=== PATIENT | female | born 1970 | race Caucasian/White ===

== ENCOUNTER 2025-05-18 08:57 | Outpatient (REF) | payer OTHER, SELFPAY ==
--- OUTSIDE RECORDS SUMMARY | 2025-05-18 09:58 | XMS_ITS | Clinical Summary ---
Author Organization [facility] Address [address] [place] [address] Care Team Providers Care Hatchery Manager Name Role Phone Torrey Goldman DO Primary Care Provider [phone] Surgical History Surgery Date Site/Laterality Comments SECTION PROCEDURE: HISTORICAL OTHER SURGICAL HISTORY PROCEDURE: HISTORICAL CERCLAGE SURGERY CHOLECYSTECTOMY PROCEDURE: SC CHOLECYSTECTOMY OTHER SURGICAL HISTORY PROCEDURE: SC HYSTEROSCOPY ENDOMETRIAL ABLATION; COMMENT: bladder sling TUBAL LIGATION PROCEDURE: HISTORICAL TUBAL LIGATION ABDOMINAL SURGERY 10/25/2016 PROCEDURE: HISTORICAL ABDOMINAL SURGERY; COMMENT: Laparoscopic sleeve gastretomy Medical History Medical History Date Comments HTN (hypertension) DX:HTN (hyper tension) Family history of early CAD 09/27/2015 DX:F amily history of early CAD; COMMENT: Father first [place] age 30, hx rheumatic fever Erythrocytosis 05/24/2021 DX:Erythrocytosi s; COMMENT: Per heme/onc 05/02/2021, not clinically significant no further work-up needed Hemochromatosis 05/24/2021 DX:Hemochromatos is; COMMENT: Being investigated by hemeonc 04/2021 Family History Medical History Relation Name Comments Coronary artery disease Father Other: HIV Sister Relation Name Status Comments Brother Alive HTN Father (Age 73) first [place] a ge 30, rheumatic fever, Heart failure, DM, kidney, thyroid disease Mother Alive [place] Sister AIDS Son 1 Alive Healthy Son 2 Alive Healthy Son 3 Alive healthy Son 4 Alive healthy adopted Son 5 Alive healthy adopted Social History Tobacco Use Types Packs/Day Years Used Date Smoking Tobacco: Never Smokeless Tobacco: Never Alcohol Use Standard Drinks/Week Comments Yes 0 (1 standard drink = 0.6 oz pur e alcohol) Comments Unknown Sex and Gender Information Value Date Recorded Sex Assigned at Not on file Legal Sex Female 9:20 PM EST Gender Identity Not on file Sexual Orientation Not on file Obstetrics History Plan of Treatment Health Maintenance Due Date Last Done Comments Breast Cancer Screening 1971 Colorectal Cancer Screening: Colonoscopy 1971 Cervical Cancer Screening: P ap Smear 01/31/1992 Pneumococcal Vaccine: 50+ Years (1 of 1 - PCV) 2021 Zoster Vaccines (1 of 2) 2021 Hepatitis B Vaccines (3 of 3 - 19+ 3-dose series) 07/15/2021 02/15/2021, 01/13/2021 Cholesterol Screening (Lipid Panel) 07/22/2022 HIV Screening 07/22/2022 Hepatitis C Screening 07/22/2022 Social Influencers of Health Screening 07/22/2022 Hypertension/CHF/CAD Annual BMP Blood Test 07/23/2022 Depression Screening 08/13/2024 COVID-19 Vaccine (3 - 2024-2 6 season) 2025 12/15/2020, 11/17/2020 Influenza Vaccine (#1) 2025 , 06/06/2018, 05/10/2015 DTaP,Tdap,and Td Vaccines (2 - Td or Tdap) 09/27/2025 09/27/2015 RSV Immunization Adult Patients (1 - 1-dose 75+ series) 2046 MMR Vaccines Aged Out 02/15/2021, 01/13/2021 No longer eligible based on patient's age to complete this topic HIB Vaccines Aged Out No longer eligi ble based on patient's age to complete this topic HPV Vaccines Aged Out No longer eligi ble based on patient's age to complete this topic Hepatitis A Vaccines Aged Out No long er eligible based on patient's age to complete this topic IPV Vaccines Aged Out No longer eligi ble based on patient's age to complete this topic Meningococcal ACWY Vaccine Aged Out N o longer eligible based on patient's age to complete this topic Meningococcal B Vaccine Aged Out No l onger eligible based on patient's age to complete this topic RSV Immunization Patients Under 20 months Aged Out No longer eligible b ased on patient's age to complete this topic Varicella Vaccines Aged Out No longer eligible based on patient's age to complete this topic Care Teams Hatchery Manager Relationship Specialty Start Date End Date Torrey Goldman DO PCP - General Internal Medicine 03/02/22
--- OUTSIDE RECORDS SUMMARY | 2025-05-18 09:58 | XMS_ITS | Clinical Summary ---
Author Organization [employer] Address [address] [facility] [address] [place] [address] Care Team Providers Care Special Machine Operator Name Role Phone Bethanie Matt BUGGY RUNNER Primary Care Provider [phone] Allergies Active Allergy Reactions Criticality Noted Date Comments Amoxicillin-Pot Clavulanate 09/20/2017 Rash Cefotetan 09/20/2022 Other reaction(s): hives Metformin Diarrhea Medium 11/20/2024 Oxycodone-Acetaminophen 09/20/2022 Other reaction(s): hallucinations Penicillins 09/20/2022 Other reaction(s): Rash Medications ibuprofen 600 MG tablet Take 600 mg by mouth. 08/18/19 23 Active loratadine (Claritin) 10 MG tablet Take 1 tablet by mouth in the morning. 09/04/19 23 Active omeprazole (PriLOSEC) [address] capsule Take 1 capsule by mouth in the morning. 09/06/19 23 Active gabapentin (Neurontin) 100 MG capsule Take 200 mg by mouth 3 times daily. 04/10/20 23 Active PARoxetine (Paxil) 10 MG tablet Take 10 mg by mouth Once per day. Active Blood Glucose Monitoring Suppl (FreeStyle Lite) w/Device kitIndications:T ype 2 diabetes mellitus with hyperglycemia, without long-term current use of insulin (HCC) 1 Units Once per day. 1 kit 03/06/20 24 Active Alcohol Swabs padsIndications: Type 2 diabetes mellitus with hyperglycemia, without long-term current use of insulin (HCC) 1 Units Once per day. For blood glucose checks 100 each 03/06/20 Active glucose blood (FREESTYLE LITE) test stripIndications :Type 2 diabetes mellitus with hyperglycemia, without long-term current use of insulin ([facility]) TEST ONCE DAILY BEFORE BREAKFAST. 100 strip 3 03/06/20 Active lisinopril 20 MG tabletIndication s:Essential hypertension TAKE 1 TABLET BY MOUTH EVERY DAY IN THE MORNING 90 tablet 3 04/03/20 Active fluticasone (Flonase) 50 MCG/ACT nasal sprayIndications :Allergic rhinitis, unspecified seasonality, unspecified trigger Administer 1 spray into each nostril Once per day. Shake gently. Before first use, prime pump. After use, clean tip and replace cap. 16 g 11 06/09/20 Active dicyclomine (Bentyl) 10 MG capsule Take 10 mg by mouth 4 times daily. 11/07/19 Active semaglutide (Ozempic, 1 MG/DOSE,) 4 MG/3ML solution pen-injectorIndi cations:Uncontro lled type 2 diabetes mellitus with hypoglycemia without coma (HCC) INJECT 1MG SUBCUTANEOUSLY ONCE A WEEK 9 mL 3 03/23/20 Active Active Problems Problem Noted Date Diagnosed Date Uncontrolled type 2 diabetes mellitus with hypoglycemia without coma 11/20/2024 Pain of right heel 11/20/2024 Burgos's esophagus determined by biopsy 025 Medication changed to therapeutic equivalent 05/2025 Osteoarthritis of both hands 06/09/2024 Overview (06/09/2024): Patient with osteoarthritis to both hands, seen on XR. RF <10 02/28/24. Pain and stiffness worse in left ring finger. We will refer to rheum. Hand pain, left 02/28/2024 Overview (03/06/2024): Finger, toes, and hip pain, worsening x 6 months with finger deformity to L 4th finger. Can continue to take Ibuprofen for pain. X rays showed osteoarthritis. RA screen negative Assessment & Plan (03/06/2024 8:59 AM EDT): X rays showed osteoarthritis. RA screen negative Discussed referral to arthritis treatment center; pt deferred at this time as she would like to focus on new dx of diabetes. Can continue to take Ibuprofen for pain. Edema of right lower extremity 04/26/2023 Overview (04/26/2023): LE edema in R ankle, intermittent x 3-4 weeks. Notices shoe didn't fit. Generalized RLE edema noted. Will get venous duplex. Reviewed S/S DVT/blood clots - when to go to ER. Urinary frequency 04/26/2023 Overview (04/26/2023): Urinary frequency. Will check UA. Routine general medical exam ination at a health care facility 04/26/2023 Overview (04/26/2023): CPE done 04/25/23 HEALTH CARE MAINTENANCE: Colonoscopy (age 45-75): Age 51, 10 year follow up - 2030 Mammogram (age 40-74): HX of breast cancer. Mammo scheduled for next month. Has oncology appointment next month - [facility]. AAA Screen (Fam Hx AAA): No known family history. LDCT (smoke >30 pack year, age 55-80): Never smoker. DEXA (age 61 with RF, age 66): Had bone density 1 year ago before hysterectomy - was normal. IMMUNIZATIONS: Tetanus (every 10 years): 09/2015 Pneumococcal (age 65): Age 53 Shingrix (age 50): Had Shingles 15 years ago - hasn't had vaccine yet. COVID: Moderna x 2. No boosters. FLU: Will have every year - hasn't had yet. Assessment & Plan (04/26/2023 9:13 PM EDT): Reviewed all health care maintenance and immunizations. Discussed Shingles and vaccination. Advised to get vaccine - pt will consider. Lesion of eyelid 04/26/2023 Overview (04/26/2023): L upper eyelid, outer lash line - pea sized, flesh colored lesion x 6 months. No S/S infection, No erythema. Fluctuates in size, pt reports up to marble size. Will refer to surgery for further evaluation. Ductal carcinoma in situ (DCIS) of right breast 10/18/2022 Incomplete uterovaginal prolapse 10/18/2022 Severe obesity (BMI 35.0-39.9) with comorbidity (CMS/HCC) 10/18/2022 Uterine fibroid 10/18/2022 Moderate mixed hyperlipidemia not requiring stat in therapy 10/18/2022 Overview (10/19/2022): 09/20/22 ASCVD Risk 2.4% Assessment & Plan (10/19/2022 8:38 PM EST): Lab results reviewed. No statin indicated at this time. Discussed healthy lifestyle changes. Type 2 diabetes mellitus wit h hyperglycemia, without long-term current use of insulin 10/18/2022 02/28/2024 Overview (06/09/2024): A1C 9.2% on routine blood tests 02/28/24. Today 06/09/24 down to 6.8%. However patient is having severe daily diarrhea on metformin 500 mg daily. We will discontinue metformin and start weekly Trulicity injections. Reviewed medication, administration, and possible side effects. Advised patient to continue checking FBS while we adjust medications, with eventual goal of discontinuing CGM and managing with in-clinic A1c readings. Patient in agreement with plan. She will follow up if diarrhea worsens or fails to improve. Assessment & Plan (03/06/2024 8:57 AM EDT): A1C 9.2% on routine blood tests 02/28/24 Started meformin XR 500 mg daily (low d/t concern for GI side effects - she will let us know if SEs develop) Referred to nutrition for diabetic education Advised to start checking blood sugar daily before breakfast Follow up 3 months or sooner if needed Assessment & Plan (03/06/2024 8:55 AM EDT): >>ASSESSMENT AND PLAN FOR PREDIABETES WRITTEN ON 10/19/2022 8:35 PM BY PAT GUTIERREZ Reviewed lab results, discussed prediabetes. Discussed healthy lifestyle modifications. Will continue to discuss. Hemochromatosis 09/21/2022 Overview (06/09/2024): Engaged with hematology at [facility]. Obesity (BMI 35.0-39.9 without comorbidity) 04/2023 Assessment & Plan (09/21/2022 1:50 PM EST): Will check labs. Symptomatic postsurgical menopause 09/21/2022 Overview (04/26/2023): Total hysterectomy 08/2022 for prolapsed uterus and endometriosis. Since hysterectomy having : night sweats, new hip pain, insomnia, brain fog, feels groggy, gaining weight. Started on Gabapentin. Engaged with Dr. Cabello, ADVERTISING [employer]ITER - has appt next month. Assessment & Plan (10/19/2022 8:29 PM EST): Significant hot flashes, interfering with sleep. Being treated by ADVERTISING COPYWRITER. Gabapentin increased, is going to try acupuncture. Assessment & Plan (09/21/2022 1:51 PM EST): +hot flashes after total hysterectomy. Engaged with ADVERTISING COPYWRITER who recently started Gabapentin, which is helping. Will continue to monitor. H/O gastric sleeve 09/21/2022 Dysmenorrhea 09/20/2022 Dyspareunia, female 09/20/2022 Erythrocytosis 09/20/2022 Assessment & Plan (09/20/2022 9:24 AM EST): Engaged with hematology. Allergic rhinitis 10/23/2021 Overview (06/09/2024): Well controlled with fluticasone. We will continue with current treatment plan. Essential hypertension 10/23/2021 Overview (06/09/2024): BP Readings from Last 4 Encounters: 06/09/24 120/74 03/06/24 114/67 02/28/24 127/83 04/25/23 (!) 139/93 BP at goal on Lisinopril. Will continue current treatment plan at this time. Assessment & Plan (10/19/2022 8:24 PM EST): BP at goal. Some dry cough on Lisinopril, but does not want to change at this time. Will continue to monitor and will call if decides she would like to trial new medication. Assessment & Plan (09/20/2022 9:23 AM EST): Had been stable on Lisinopril for about 10 years, ran out about 2 weeks ago. Denies any medication side effects. Will restart Lisinopril 10mg. Will RTC in about 1 month for CPE/BP check. Gastroesophageal reflux disease 02/01/2020 Overview (04/26/2023): On Prilosec x 6 years. 10/2022 H Pylori negative. Unable to stop PPI due to symptoms. Discussed options - will refer to GI. Assessment & Plan (10/19/2022 8:33 PM EST): Will test for H Pylori. If negative, will trial off Prilosec and start H2 kathryn. If symptoms are not managed on H2 kathryn, will restart PPI and will refer to GI. Assessment & Plan (09/21/2022 1:50 PM EST): On Prilosec x 6 years since gastric sleeve procedure to control acid reflux symptoms. 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 Will continue to discuss and encourage H2 kathryn trial. Encounters Date Type Department Care Team Description 03/23/[address] [address] Sarita Curtis DO Uncontrolled type 2 diabetes mellitus with hypoglycemia without coma (CMS/HCC) 02/24/[address] [address] Bethanie Matt FNP Uncontrolled type 2 diabetes mellitus with hypoglycemia without coma (CMS/HCC) from Last 3 Months Immunizations Immunization Administration Dates Next Due Hep B, adult 07/18/2021,02/15/2021,01/13/2021 Influenza Injectable Quadriv alant Preservative Free IIV4 MDCK 05/24/2022,05/27/2021,06/06/2018 Influenza injectable quadriv alent IIV4 with preservative 07/13/2020 Influenza injectable quadriv alent preservative free 05/23/2023 Influenza, IIV3, injectable 05/27/2021, 0,05/10/2015 MMR 02/15/2021,01/13/2021 Moderna Covid-19 Vaccine 12+ 12/15/2020,11/18/19 21 Tdap 09/27/2015 Family History Medical History Relation Name Comments htn Brother Premature Daughter 22 weeks Heart disease Father Thyroid disease Father htn Father renal disease Father No Known Problems Mother No contact HIV Sister Age 40 No Known Problems Son 1 No Known Problems Son 2 No Known Problems Son 3 Relation Name Status Comments Brother Alive Daughter Father Mother Alive Sister Son 1 Alive Son 2 Alive Son 3 Alive Social History Tobacco Use Types Packs/Day Years Used Date Smoking Tobacco: Never Passive Smoke Exposure: Never Smokeless Tobacco: Never Tobacco Cessation:Counseling Given: Not Answered Alcohol Use Standard Drinks/Week Comments Not Currently 0 (1 standard drink = 0.6 oz pur e alcohol) Maybe 2 drinks per year. Alcohol Answer Date Recorded How often do you have a drink containing alcohol ? 0 11/20/2024 How many drinks containing a lcohol do you have on a typical day when you are drinking? 0 11/20/2024 How often do you have six or more drinks on one occasion? 0 11/20/2024 Housing Stability Answer Date Recorded What is your housing situation today? I have rosana salazar 11/20/[address] you li ve. Do you have problems with any of the following? None of the above 11/20/2024 Food Insecurity Answer Date Recorded Within the past 12 months, y ou worried that your food would run out before you got money to buy more: Never True 11/20/2024 Within the past 12 months,th e food you bought just didn't last and you didn't have enough money to get more: Never True 05/2025 Transportation Answer Date Recorded In the past 12 months, has l ack of transportation kept you from medical appts, meetings, work or from getting things needed for daily living? No 11/20/2024 Intimate Partner Violence Answer Date R ecorded Within the last year, have y ou been afraid of your partner or ex-partner? 2 11/20/2024 Within the last year, have y ou been humiliated or emotionally abused in other ways by your partner or ex-partner? 2 Within the last year, have y ou been kicked, hit, slapped, or otherwise physically hurt by your partner or ex-partner? 2 11/20/2024 Within the last year, have y ou been raped or forced to have any kind of sexual activity by your partner or ex-partner? 2 11/20/2024 Utilities Answer Date Recorded In the past 12 months, has t he [employer], gas, oil or water company threatened to shut off services in your home? No 11/20/2024 Depression Answer Date Recorded Patient Health Questionnaire-2 Score 0 11/20/2024 Internet Access Answer Date Recorded Internet Access Q1 Yes 11/20/2024 Internet Access Q2 Not on file 11/20/2024 Education Answer Date Recorded What is the highest level of school you have completed or the highest degree you have received? 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 Not on file Not on file Last Filed Vital Signs Vital Sign Reading Time Taken Comments Blood Pressure 100/65 11/20/2024 9:45 AM EDT Pulse 86 11/20/2024 9:45 AM EDT Temperature 36.9 C (98.4 F) 06/09/2024 9:43 AM EDT Respiratory Rate 16 06/09/2024 9:43 AM EDT Oxygen Saturation 96% 11/20/2024 9:45 AM EDT Inhaled Oxygen Concentration - - Weight 90.7 kg (200 lb) 11/20/2024 9:45 AM EDT Height 160 cm (5' 3 ) 11/20/2024 9:45 AM EDT Body Mass Index 35.43 11/20/2024 9:45 AM EDT Plan of Treatment Health Maintenance Due Date Last Done Comments CT Colonography 1971 Colonoscopy 1971 Colorectal Cancer Screening 1971 FIT DNA/Cologuard 1971 FIT 1971 FOBT 1971 Mammogram 1971 Sigmoidoscopy 1971 Disability Screening 1971 Eye Exam 1981 Pneumococcal Vaccine: 50+ Years (1 of 2 - PCV) 1990 Zoster Vaccines (1 of 2) 2021 Lipid Panel 09/20/2023 09/20/2022 COVID-19 Vaccine ( - season) 2025 08/01/2023, 12/15/2020, 11/17/2020 Influenza Vaccine (#1) 2025 4, 05/23/2023, 05/24/2022, Additional history exists Diabetes: Hemoglobin A1C 05/22/2025 025, 06/09/2024, 02/28/2024, Additional history exists DTaP/Tdap/Td Vaccines (2 - Td or Tdap) 09/27/2025 09/27/2015 Alcohol/Substance Use Screening 11/20/2025 11/20/2024 Depression Screening 11/20/2025 11/20/2024, 11/21/19 25 Diabetes: Urine Protein Screening 11/20/2025 11/20/2024 SDOH Screening 11/20/2025 11/20/2024 Tobacco Screening 11/20/2025 11/20/2024 Diabetes: Foot Exam 12/26/2025 12/26/2024, 5 RSV Patients and Patients Aged 60 years or older (1 - 1-dose 75+ series) 2046 Hepatitis B Vaccines Completed 07/18/2021, 02/15/2021, 01/13/2021 HIV Screening Completed 02/28/2024 Hepatitis C Screening Completed 02/28/2024 HIB Vaccines Aged Out No longer eligi [...] patient's age to complete this topic Meningococcal Vaccine Aged Out No valeria charisse eligible based on patient's age to complete this topic RSV under 20 months Aged Out No longe r eligible based on patient's age to complete this topic Rotavirus Vaccines Aged Out No longer eligible based on patient's age to complete this topic Procedures Procedure Name Priority Date/Time Associated Diagnosis Comments AMB REFERRAL TO PODIATRY Urgent 12/26/2024 Pain of right heel POCT GLYCOSYLATED HEMOGLOBIN (HGB A1C) Routine 11/20/2024 2:01 PM EDT Uncontrolled type 2 diabetes mellitus with hypoglycemia without coma (CMS/HCC) ALBUMIN/CREATININE RATIO, RANDOM URINE Routine 11/20/2024 12:00 AM EDT Uncontrolled type 2 diabetes mellitus with hypoglycemia without coma (CMS/HCC) HEPATITIS C VIRUS (HCV) AB CASCADE TO QNT PCR & GENOTYP Routine 02/28/2024 1:06 PM EDT Routine screening for STI (sexually transmitted infection) HIV P24 ANTIGEN/ANTIBODY WITH REFLEX TO CONFIRMATION Routine 02/28/2024 1:06 PM EDT Routine screening for STI (sexually transmitted infection) LIPID PANEL, STANDARD Routine 09/20/2022 9:23 AM EST from Last 3 Months or Most Recently Relevant to Health Maintenance Results * Referral to Podiatry (12/26/2024) us Tonja Giles NP OUTPATIENT REFERRAL O RDERABLES Final Result * (ABNORMAL) POCT glycosylated hemoglobin (Hgb A1c) (11/20/2024 2:01 PM EDT) Hemoglobin A1C 6.1(A) 4.0 - 6.0 % Blood Capillary blood specimen / Unknown 11/20/2024 2:01 PM EDT us Tonja Giles NP POINT OF CARE TEST EN TER/EDIT ORDERABLES Final Result * Albumin/Creatinine Ratio, Random Urine (11/20/2024 12:00 AM EDT) Creatinine, Random Urine 148.4 Not Estab. mg/dL [facility] Albumin, Urine 4.6 Not Estab. ug/mL [facility] 1 Albumin/Creatini ne Ratio 3 0 - 29 mg/g creat [facility] 1 Comment: Normal: 0 - 29 Moderately increased: 30 - 300 Severely increased: >300 Urine (Urine, Random) 11/20/2024 11/20/2024 Comment:Urine, Random Releas e Narrative [facility] 1 - 11/21/2024 6:05 PM EDT Performed at: - [address] [id number] Plum Packer: Sahara Adair MD, Phone: [phone] us Tonja Giles NP LAB URINE ORDERABLES Final Result Performing Organization Address City/[facility]/ZIP Co de Phone Number [facility] * Hepatitis C Virus (HCV) Antibody [place] to Quantitative PCR and Genotyping [id number] (02/28/2024 1:06PM EDT) Pathologist [facility] HCV Ab Non Reactive Non Reactive [facility] 1 Blood Venous blood specimen / Unknown 02/28/2024 1:06 PM EDT 02/28/2024 Narrative [facility] 1 - 02/29/2024 12:06 PM EDT Performed at: [facility] [address], [address], [place], [place] [id number] Plum Packer: Giles Oneill MD, Phone: [phone] us Bethanie DUVALLP LAB BLOOD ORDERABLES Final Resul t [facility] 1 * HIV p24 Antigen/Antibody With Reflex to Confirmation (02/28/2024 1:06 PM EDT) Pathologist [facility] HIV Ab/p24 Ag Screen Non Reactive Non Reactive [facility] 1 Comment: HIV Negative HIV-1/HIV-2 antibodies and HIV-1 p24 antigen were NOT detected. There is no laboratory evidence of HIV infection. Blood Venous blood specimen / Unknown 02/28/2024 1:06 PM EDT 02/28/2024 Narrative [facility] 1 - 02/29/2024 6:05 AM EDT Performed at: 01 - [facility] [address] [id number] Plum Packer: Sahara Adair MD, Phone: [phone] Bethanie Matt [facility] LAB BLOOD ORDERABLES Final Resul t Performing Organization Address [facility] Co de Phone Number [facility] * (ABNORMAL) Lipid Panel, Standard (09/20/2022 9:23 AM EST) Pathologist [facility] Cholesterol, Total 229(H) (<200) MG/DL [facility] Triglyceride (mg/dL) in Serum/Plasma 199(H) (<150) MG/DL [facility] HDL Cholesterol 46 (>39) MG/DL [facility] LDL Cholesterol, Calculated 143(H) (0-130) MG/DL [facility] Non HDL Chol. (LDL+VLDL) 183(H) (<160) MG/DL [facility] Comment: Testing performed or reported by [facility], a Service of [facility], [address] [place] [address] La Davis MD, Patient Safety Attendant [facility]# [id number] 09/20/2022 9:23 AM EST 09/20/2022 9:24 AM EST [facility] LAB BLOOD ORDERABLES Final Resul t Performing Organization Address [facility] de Phone Number [address] [address] from Last 3 Months or Most Recently Relevant to Health Maintenance Insurance , [address] [place] [address] Care Teams Special Machine Operator Relationship Specialty Start Date End Date Bethanie Matt FNP [address] [place] [address] PCP - General Family Medicine 09/19/22
--- OUTSIDE RECORDS SUMMARY | 2025-05-18 09:58 | XMS_ITS | Encounter Summary ---
Author Organization [employer] Address [address] [facility] 7t [place] [address] Care Team Providers Care Production Planner Scheduler Name Role Phone Bethanie Matt Primary Care Provider [phone] Reason for Visit * Reason Comments Med Refill Encounter Details Date Type Department Care Team (Late st Contact Info) Description 08/17/2023 Refill Elaine [facility] [address] [place] [address] Bethanie Matt FNP [address] [place] [address] Essential hypertension Social History Tobacco Use Types Packs/Day Years Used Date Smoking Tobacco: Never Smokeless Tobacco: Never Alcohol Use Standard Drinks/Week Comments Not Currently 0 (1 standard drink = 0.6 oz pur e alcohol) Maybe 2 drinks per year. Housing Stability Answer Date Recorded What is your housing situation today? I have rosana salazar 05/28/[address] you li ve. Do you have problems with any of the following? None of the above 05/28/2023 Food Insecurity Answer Date Recorded Within the past 12 months, y ou worried that your food would run out before you got money to buy more: Never True 05/28/2023 Within the past 12 months,th e food you bought just didn't last and you didn't have enough money to get more: Never True Transportation Answer Date Recorded In the past 12 months, has l ack of transportation kept you from medical appts, meetings, work or from getting things needed for daily living? No 05/28/2023 Utilities Answer Date Recorded In the past 12 months, has t he electric, gas, oil or water company threatened to shut off services in your home? No 05/28/2023 Depression Answer Date Recorded Patient Health Questionnaire-2 Score 2 04/25/2023 Education Answer Date Recorded What is the highest level of school you have completed or the highest degree you have received? 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 documented in this encounter Plan of Treatment Not on file documented as of this encounter Visit Diagnoses Diagnosis Essential hypertension Unspecified essential hypertension documented in this encounter Care Teams Production Planner Scheduler Relationship Specialty Start Date End Date Bethanie Matt FNP [address] [place] [address] PCP - General Family Medicine 09/19/22 documented as of this encounter
--- OUTSIDE RECORDS SUMMARY | 2025-05-18 09:58 | XMS_ITS | Patient Health Record ---
Author Organization [facility] Address [address] [place] [address] Care Team Providers Care Finance Administrator Name Role Phone Kika Dickerson Primary Care Provider CHRISTINE Driver Unavailable [phone] Allergies Allergen (clinical drug ingredient) Drug/Non Drug Allergy documented on EMR Reaction Allergy Type Onset Date Status Ceftin hives Drug Allergy Active acetaminophen / oxycodone Percocet hives Drug Allergy Active Penicillin hives Drug Allergy Active Reason For Referral No Information Medications Medication SIG (Take, Route, Frequency, Duration) Notes Start Date End Date Status Loratadine 10 MG 1 tablet Orally Once a day Active Omeprazole 20 MG 1 capsule 1/2 to 1 hour before morning meal Orally Once a day Active PARoxetine HCl 10 MG 1 tablet in the morning Orally Once a day Active Ozempic (0.25 or 0.5 MG/DOSE) 2 MG/3ML as directed Subcutaneous Active Meloxicam 15 MG 1 tablet Orally Once a day; Duration: 30 days 12/26/2024 Active Flonase 50 MCG/ACT Active Gabapentin 100 MG 1 tablet Orally Once a day Not-Taking Lisinopril 20 MG 1 tablet Orally Once a day Active Ibuprofen 600 MG 1 tablet with food o r milk as needed Orally Three times a day Not-Taking Famotidine 20 MG 1 tablet at bedtime as needed Orally Once a day Not-Taking Problems Problem Type SNOMED Code ICD Code Onset Dates Problem Status W/U Status Risk Notes Problem 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) Plantar fasciitis, right (M72.2) Active confirmed Vital Signs Heart Rate 80 /min 02/25/2025 Temperature 96.8 degrees Fahrenheit 02/25/2025 Respiratory Rate 12 /min 02/25/2025 Height 5ft 3in in 02/25/2025 Weight 192.5 lbs 02/25/2025 BMI 34.1 kg/m2 02/25/2025 Encounters Encounter Location Date Provider Diagnosis [facility] [address] [address] 12/26/2024 CHRISTINE OKEEFE Right Achilles tendinitis M76.61 ; Plantar fasciitis, right M72.2 ; Pain in right foot M79.671 and Os trigonum Q74.2 [facility] [address] [address] 01/23/2025 CHRISTINE OKEEFE Right Achilles tendinitis M76.61 ; Plantar fasciitis, right M72.2 ; Pain in right foot M79.671 and Os trigonum Q74.2 [facility] [address] [address] 02/25/2025 CHRISTINE OKEEFE Right Achilles tendinitis M76.61 ; Plantar fasciitis, right M72.2 ; Pain in right foot M79.671 and Os trigonum Q74.2 [facility] [address] [address] 12/09/2024 CHRISTINE OKEEFE Assessments Encounter Date Diagnosis (ICD Code) Assessment Notes Treatment Notes Treatment Clinical Notes Section Notes 12/26/2024 Plantar fasciitis, right (ICD-10 - M72.2) Discussed the pathology of plantar fasciitis, what that means and how it affects the patient's ADL. Reviewed stretching and icing exercises with the patient, handout dispensed, and patient instructed to perform twice daily. Recommended starting a course of NSAIDs with the patient, RX Meloxicam 15mg PO daily x 30 days. Discussed proper shoe gear with the patient and recommended over the counter inserts, will give list at the next visit. We discussed a steroid injection and physical therapy for alternatives. If no improvement, we discussed ordering an MRI to evaluate the os trigonum to check to see if this is also involved. She is in agreement with this plan. Patient to follow up in 4 weeks. 12/26/2024 Right Achilles tendinitis (ICD-10 - M76.61) This is an outpatient visit for evaluation and management of a new patient, which required appropriate review of pertinent medical history, review of any previous imaging, review of all previous records, and examination and decision-making. Time was 45 minutes spent in review of all these facets including face to face discussion with the patient regarding my findings and in discussion of a current and future treatment plan. We discussed she has tendinitis of the distal Achilles tendon of the right ankle. I reviewed her x-raysand she has no evidence of a fracture or other bony deformity. She has no evidence of a tear or rupture of the Achilles tendon. She has no weakness of the tendon groups on examination today. We discussed tendon injuries typically do worsen with use or activity. I explained it can take 4-8 weeks for the areas to heal from the point of injury. We discussed ice can be helpful at first, but now I would recommend heat instead. I also recommended that she start an NSAID. The other recommendation that I discussed with the patient is temporary immobilization of the tendons to allow for rest and healing. The patient was fitted and an ASO ankle brace was dispensed to the patient in the office today. I told the patient to wear this daily for 4 weeks. If she is pain free in 4 weeks, she can start to come out of the brace, if not then she will need to use the brace for 8 weeks. Patient is in agreement with this plan. 01/23/2025 Right Achilles tendinitis (ICD-10 - M76.61) Her right foot is significantly improved this visit. She will finish the 30-day course of the Meloxicam. We discussed she has tendinitis of the distal Achilles tendon of the right ankle. We can have her start to come out of the brace. I recommended she still use the brace when on her feet for more than 1 hour at a time. We discussed if she develops rebound pain to return to wearing the brace director multimedia every other day. If no issues when transitioning out of the brace she can come out fully in 2 weeks. She is in agreement with this plan. I also reviewed some foot exercises she can start doing on a daily basis for the right foot. We discussed appropriate shoe gear moving forward. Handout reviewed in the office with the patient and dispensed. I would like to see her back in 1 month to make sure she does not develop rebound issues. 02/25/2025 Right Achilles tendinitis (ICD-10 - M76.61) Her right foot pain is resolved. She has transitioned out of the ankle brace without issue. She has completed the meloxicam and has no recurrence of inflammation or pain. I encouraged her to stretch before exercising in the future. We discussed if she develops a similar pain in the future, to go into the brace for a few days to let the foot rest. Patient to follow up as needed or if the pain returns. She is in agreement with this plan. 02/25/2025 Plantar fasciitis, right (ICD-10 - M72.2) 12/26/2024 Pain in right foot (ICD-10 - M79.671) 01/23/2025 Plantar fasciitis, right (ICD-10 - M72.2) If her pain returns, we discussed ordering an MRI to evaluate the os trigonum to check to see if this is also involved. She is in agreement with this plan. Patient to follow up in 4 weeks. 12/26/2024 Os trigonum (ICD-10 - Q74.2) 01/23/2025 Pain in right foot (ICD-10 - M79.671) 02/25/2025 Pain in right foot (ICD-10 - M79.671) 02/25/2025 Os trigonum (ICD-10 - Q74.2) 01/23/2025 Os trigonum (ICD-10 - Q74.2) Plan Of Treatment Pending Test Test Name Order Date X ray : Foot, right 3v 12/26/2024 Insurance Providers Payer Name Payer Address Payer Phone Subscriber Number Group Number Insured Name Patient Relationship to Insured Coverage Start Date Coverage End Date [facility] [address] [place] [phone] [id number] Lisa Curtis Self - patient is the insured Medical (General) History Medical History History ICD Code 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
--- OUTSIDE RECORDS SUMMARY | 2025-05-18 09:58 | XMS_ITS | Encounter Summary ---
Author Organization [employer] Address [address] [facility] 7t [place] [address] Care Team Providers Care Case Management Rn Name Role Phone Bethanie Matt Primary Care Provider [phone] Reason for Visit * Reason Comments Med Refill Encounter Details Date Type Department Care Team (Late st Contact Info) Description 10/17/2022 Refill Elaine [facility] [address] [place] [address] Bethanie Matt FNP [address] [place] [address] Essential hypertension Social History Tobacco Use Types Packs/Day Years Used Date Smoking Tobacco: Never Smokeless Tobacco: Never Alcohol Use Standard Drinks/Week Comments Not Currently 0 (1 standard drink = 0.6 oz pur e alcohol) Maybe 2 drinks per year. Comments Unknown Sex and Gender Information Value Date Recorded Sex Assigned at Female 09/19/2022 10:13 AM EST Legal Sex Female 8:40 PM EDT Gender Identity Female 09/19/2022 10:13 AM EST Sexual Orientation Straight 09/19/2022 10 :13 AM EST COVID-19 Exposure Response Date Recorded In the last 10 days, have yo u been in contact with someone who was confirmed or suspected to have Coronavirus/COVID-19? No / Unsure 10/18/2022 8:48 AM EST documented as of this encounter Miscellaneous Notes * Telephone Encounter - PAT Mandel - 10/18/2022 11:32 AM EST Refill done in OV. documented in this encounter Plan of Treatment Not on file documented as of this encounter Visit Diagnoses Diagnosis Essential hypertension Unspecified essential hypertension documented in this encounter Care Teams Case Management Rn Relationship Specialty Start Date End Date Bethanie Matt FNP [address] [place] [address] PCP - General Family Medicine 09/19/22 documented as of this encounter
--- OUTSIDE RECORDS SUMMARY | 2025-05-18 09:58 | XMS_ITS | Encounter Summary ---
Author Organization [employer] Address [address] [facility] 7[address] [place] [address] Care Team Providers Care Mine Supervisor Name Role Phone Bethanie Matt Primary Care Provider [phone] Reason for Visit * Reason Comments Med Refill Encounter Details Date Type Department Care Team (Late st Contact Info) Description 04/25/2023 Refill Elaine [facility] [address] [place] [address] Bethanie Matt FNP [address] [place] [address] Essential hypertension Social History Tobacco Use Types Packs/Day Years Used Date Smoking Tobacco: Never Smokeless Tobacco: Never Alcohol Use Standard Drinks/Week Comments Not Currently 0 (1 standard drink = 0.6 oz pur e alcohol) Maybe 2 drinks per year. 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 Question Answer Date of Assessment Author Little interest or pleasure in doing things Several days 04/25/2023 9:43 AM Elsa Jarrett RMA Feeling down, depressed, or hopeless Several days 04/25/2023 9:43 AM HORTENCIAT Elsa Valero RMA Patient Health Questionnaire -2 Score 2 04/25/2023 9:43 AM HORTENCIAT Elsa Valero RMA * If you checked off any problems on this questionnaire so far, Question Answer Date of Assessment Author How difficult have these problems made it for you to do your work, take care of things at home, or get along with other people? Not difficult at all 04/25/2023 9:43 AM Elsa Jarrett RM A documented as of this encounter Plan of Treatment Not on file documented as of this encounter Visit Diagnoses Diagnosis Essential hypertension Unspecified essential hypertension documented in this encounter Care Teams Mine Supervisor Relationship Specialty Start Date End Date Bethanie Matt FNP [address] [place] [address] PCP - General Family Medicine 09/19/22 documented as of this encounter
--- OUTSIDE RECORDS SUMMARY | 2025-05-18 09:58 | XMS_ITS | Encounter Summary ---
Author Organization [employer] Address [address] [facility] 7t [place] [address] Care Team Providers Care Jewel Bearing Turner Name Role Phone Bethanie Matt Primary Care Provider [phone] Encounter Details Date Type Department Care Team (Late st Contact Info) Description 09/05/2022 Abstract Elaine [facility] [address] [place] [address] Provider, MD Haroldo Social History Tobacco Use Types Packs/Day Years Used Date Smoking Tobacco: Never Assessed Comments Unknown Sex and Gender Information Value Date Recorded Sex Assigned at Female 09/19/2022 10:13 AM EST Legal Sex Female 8:40 PM EDT Gender Identity Female 09/19/2022 10:13 AM EST Sexual Orientation Straight 09/19/2022 10 :13 AM EST documented as of this encounter Plan of Treatment Not on file documented as of this encounter Visit Diagnoses Not on filedocumented in this encounter Care Teams Jewel Bearing Turner Relationship Specialty Start Date End Date Bethanie Matt FNP [address] [place] [address] PCP - General Family Medicine 09/19/22 documented as of this encounter
== END 2025-05-18 08:58 | disposition home or self-care (01) ==
LOC: HO.BBR 08:57
PROVIDERS: PCP Family Medicine; Visit Provider Nurse Practitioner Adult Health
DX: Z13.89 Encounter for screening for other disorder (principal)

== ENCOUNTER 2025-06-19 09:50 | Outpatient (REF) | payer OTHER, SELFPAY ==
--- OUTSIDE RECORDS SUMMARY | 2025-06-19 11:19 | XMS_ITS | Encounter Summary ---
Author Organization [facility] Address [address] [place] [address] Care Team Providers Care Manager Cancer Name Role Phone Bernadette Menezes MD Primary Care Provider Un available Community, Pcp Primary Care Provider Unavailabl e Torrey Goldman DO Primary Care Provider Unavaila ble AhmedTorrey DO Primary Care Provider Unavaila ble Community, Pcp Primary Care Provider Unavailabl e Encounter Details Date Type Department Care Team Description 06/13/2021 Telephone Gastroenterology - [address] [place] [address] Susan Lopez MD [address] [place] [address] Social History Tobacco Use Types Packs/Day Years Used Date Smoking Tobacco: Never Smokeless Tobacco: Never Alcohol Use Standard Drinks/Week Comments Yes 0 (1 standard drink = 0.6 oz pur e alcohol) rare Sex Assigned at Date Recorded Not on file Job Start Date Occupation Industry Not on file Not on file Not on file COVID-19 Exposure Response Date Recorded In the last month, have you been in contact with someone who was confirmed or suspected to have Coronavirus / COVID-19? No / Unsure 06/13/2021 12:55 PM EDT documented as of this encounter Miscellaneous Notes * Telephone Encounter - Mary Menon - 06/13/2021 3:08 PM EDT Patient referred to GI today for gastric sleeve concerns . GI does not manage gastric sleeve, thiswould be bariatrics. If needs to be seen for GI reason, please edit referral. documented in this encounter Plan of Treatment Not on file documented as of this encounter Visit Diagnoses Not on filedocumented in this encounter Care Teams Manager Cancer Relationship Specialty Start Date End Date Bernadette Menezes MD PCP - General Internal Medicine 09/15/14 Community, Pcp PCP - General Internal Medicine 12/05/21 12/12/21 Torrey Goldman DO PCP - General Internal Medicine 12/13/21 03/01/22 Torrey Goldmna DO PCP - General Internal Medicine 03/02/22 11/30/22 Community, Pcp PCP - General Internal Medicine 12/01/22 documented as of this encounter
--- OUTSIDE RECORDS SUMMARY | 2025-06-19 11:19 | XMS_ITS | Encounter Summary ---
Author Organization [employer] Address [address] [facility] 7t [place] [address] Care Team Providers Care Keno Writer/Runner Name Role Phone Bethanie Matt ENGRAVER LETTERING Primary Care Provider Bev Desir DO Primary Care Provider [phone] PcpElaine Unasssherly Primary Care Provider U navailable Encounter Details Date Type Department Care Team (Late st Contact Info) Description 09/05/2022 Abstract Elaine [facility] [address] [place] [address] Provider, MD Haroldo Social History Tobacco Use [...] on filedocumented in this encounter Care Teams Keno Writer/Runner Relationship Specialty Start Date End Date Bethanie Matt NP PCP - General Family Medicine 09/19/22 05/31/25 Bev Emerson DO [address] [place] [address] PCP - General Guard Entrance Registrar 06/01/25 06/07/25 Elaine Ronquillosssherly PCP - General Family Medicine 06/08/25 documented as of this encounter
--- OUTSIDE RECORDS SUMMARY | 2025-06-19 11:19 | XMS_ITS | Encounter Summary ---
Author Organization [facility] Address [address] [place] [address] Care Team Providers Care Director Of Nursing Name Role Phone Torrey Goldman DO Primary Care Provider Unavaila Torrey Keith DO Primary Care Provider Unavaila amita Robledo, Pcp Primary Care Provider Unavailabl e Encounter Details Date Type Department Care Team Description 03/01/2022 Masking Machine Feeder Report Medical Records [address] [place] [id number] Benita Badillo MD Social History Tobacco Use Types Packs/Day Years Used Date Smoking Tobacco: Never Smokeless Tobacco: Never Alcohol Use Standard Drinks/Week Comments Yes 0 (1 standard drink = 0.6 oz pur e alcohol) rare Sex Assigned at Date Recorded Not on file Job Start Date Occupation Industry Not on file Not on file Not on file documented as of this encounter Plan of Treatment Not on file documented as of this encounter Visit Diagnoses Not on filedocumented in this encounter Care Teams Director Of Nursing Relationship Specialty Start Date End Date Torrey Goldman DO PCP - General Internal Medicine 12/13/21 03/01/22 Torrey Goldman DO PCP - General Internal Medicine 03/02/22 11/30/22 Community, Pcp PCP - General Internal Medicine 12/01/22 documented as of this encounter
--- OUTSIDE RECORDS SUMMARY | 2025-06-19 11:19 | XMS_ITS | Encounter Summary ---
Author Organization [employer] Address [address] [facility] [address] [place] [address] Care Team Providers Care Carpet Layer Name Role Phone Bethanie Matt NP Primary Care Provider Bev Desir DO Primary Care Provider [phone] PcpElaine Unassigned Primary Care Provider U navailable Reason for Visit * Reason Comments Med Refill Encounter Details Date Type Department Care Team (Late st Contact Info) Description 10/17/2022 Refill Elaine [facility] [address] [place] [address] Bethanie Matt NP Essential hypertension Social History Tobacco Use Types [...] hypertension documented in this encounter Care Teams Carpet Layer Relationship Specialty Start Date End Date Bethanie Matt NP PCP - General Family Medicine 09/19/22 05/31/25 Bev Emerson DO [address] [place] [address] PCP - General Repair Service Dispatcher 06/01/25 06/07/25 Elaine Ronquillo Unassigned PCP - General Family Medicine 06/08/25 documented as of this encounter"
--- OUTSIDE RECORDS SUMMARY | 2025-06-19 11:19 | XMS_ITS | Encounter Summary ---
Author Organization [facility] Address [address] [place] [address] Care Team Providers Care Public Relations Account Supervisor Name Role Phone Bernadette Menezes MD Primary Care Provider Un available Community, Pcp Primary Care Provider Unavailabl e Torrey Goldman DO Primary Care Provider Unavaila ble Torrey Goldman DO Primary Care Provider Unavaila ble Community, Pcp Primary Care Provider Unavailabl e Reason for Visit * Reason Onset Date Comments Medication 09/19/2021 Encounter Details Date Type Department Care Team Description 09/19/2021 Refill Gastroenterology - [address] [place] [address] Susan Lopez MD [address] [place] [address] Medication Social History Tobacco Use Types Packs/Day Years [...] or suspected to have Coronavirus / COVID-19? Yes 08/31/2021 11:02 AM EST documented as of this encounter Plan of Treatment Not on file documented as of this encounter Visit Diagnoses Not on filedocumented in this encounter Care Teams Public Relations Account Supervisor Relationship Specialty Start Date End Date Bernadette Menezes MD PCP - General Internal Medicine 09/15/14 Community, Pcp PCP - General Internal Medicine 12/05/21 12/12/21 Torrey Goldman DO PCP - General Internal Medicine 12/13/21 03/01/22 Torrey Goldman DO PCP - General Internal Medicine 03/02/22 11/30/22 [facility], Pcp PCP - General Internal Medicine 12/01/22 documented as of this encounter
--- OUTSIDE RECORDS SUMMARY | 2025-06-19 11:19 | XMS_ITS | Clinical Summary ---
Author Organization [employer] Address [address] [facility] 7t [place] [address] Care Team Providers Care Reed Press Feeder Name Role Phone PcpElaine Unassigned Primary Care Provider U navailable Allergies Active Allergy Reactions Criticality Noted Date [...] Units Once per day. 1 kit 03/06/20 Active Alcohol Swabs padsIndications: Type 2 diabetes mellitus with hyperglycemia, without long-term current use of insulin (HCC) 1 Units Once per day. For blood glucose checks 100 each 03/06/20 24 Active glucose blood (FREESTYLE LITE) test stripIndications :Type 2 diabetes mellitus with hyperglycemia, without long-term current use of insulin (HCC) TEST ONCE DAILY BEFORE BREAKFAST. 100 strip [...] month. Has oncology appointment next month - [facility]. AAA Screen (Fam Hx [...] 09/21/2022 Overview (06/09/2024): Engaged with hematology at [facility]. Obesity (BMI 35.0-39.9 without comorbidity) 04/2023 Assessment & Plan (09/21/2022 1:50 PM EST): Will check labs. Symptomatic postsurgical menopause 09/21/2022 Overview (04/26/2023): Total hysterectomy 08/2022 for prolapsed uterus and endometriosis. Since hysterectomy having : night sweats, new hip pain, insomnia, brain fog, feels groggy, gaining weight. Started on Gabapentin. Engaged with Dr. Cabello, EQUIPMENT OPERATOR WAGE HAND - has appt next month. Assessment & Plan (10/19/2022 8:29 PM EST): Significant hot flashes, interfering with sleep. Being treated by EQUIPMENT OPERATOR WAGE HAND. Gabapentin increased, is going to try acupuncture. Assessment & Plan (09/21/2022 1:51 PM EST): +hot flashes after total hysterectomy. Engaged with EQUIPMENT OPERATOR WAGE HAND who recently started Gabapentin, which is helping. [...] of this medication and risks associated with custodial use. Will continue to discuss and encourage H2 kathryn trial. 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 on file Not [...] 1971 Disability Screening 1971 Eye Exam 1981 Hepatitis A Vaccines (1 of 2 - Risk 2-dose series) 1990 Pneumococcal Vaccine: 50+ Years (1 of 2 - PCV) 1990 Zoster Vaccines (1 of 2) 2021 Lipid Panel 09/20/2023 09/20/2022 COVID-19 Vaccine (4 - season) 2025 08/01/2023, 12/15/2020, 11/17/2020 Influenza [...] - 11/21/2024 6:05 PM EDT Performed at: [address] [id number] Synthetic Filament Extruder: Sahara Adair MD, Phone: [phone] Tonja Giles ANALYTICAL ENGINEER LAB URINE ORDERABLES Final Result [facility] 1 * Hepatitis C Virus (HCV) Antibody Borden to Quantitative PCR and Genotyping [id number] (02/28/2024 1:06PM EDT) HCV Ab Non Reactive Non Reactive [facility] 1 Blood Venous blood specimen / Unknown 02/28/2024 1:06 PM EDT 02/28/2024 Narrative [facility] 1 - 02/29/2024 12:06 PM EDT Performed at: [facility] [address], [address], [place], [place] [id number] Synthetic Filament Extruder: Giles Oneill MD, Phone: [phone] Bethanie Matt NP LAB BLOOD ORDERABLES Final Resul t [facility] 1 * HIV p24 Antigen/Antibody With Reflex to Confirmation (02/28/2024 1:06 PM EDT) HIV Ab/p24 Ag Screen Non Reactive Non Reactive [facility] 1 Comment: HIV Negative HIV-1/HIV-2 antibodies and HIV-1 p24 antigen were NOT detected. There is no laboratory evidence of HIV infection. Blood Venous blood specimen / Unknown 02/28/2024 1:06 PM EDT 02/28/2024 Narrative [facility] 1 - 02/29/2024 6:05 AM EDT Performed at: 01 - [facility] [address] [id number] Synthetic Filament Extruder: Sahara Adair MD, Phone: [phone] Bethanie Matt NP LAB BLOOD ORDERABLES Final Resul t Performing Organization Address [facility] de Phone Number [facility] 1 * (ABNORMAL) Lipid Panel, Standard (09/20/2022 9:23 AM EST) Cholesterol, Total 229(H) (<200) MG/DL [facility] Triglyceride (mg/dL) in Serum/Plasma 199(H) (<150) MG/DL [facility] HDL Cholesterol 46 (>39) MG/DL [facility] LDL Cholesterol, Calculated 143(H) (0-130) MG/DL [facility] Non HDL Chol. (LDL+VLDL) 183(H) (<160) MG/DL [facility] Comment: Testing performed or reported by [facility], a Service of [facility], [address] [place] [address] La Davis MD, Pre Sales Technical Engineer [facility]# [id number] 09/20/2022 9:23 AM EST 09/20/2022 9:24 AM EST Bethanie Matt NP LAB BLOOD ORDERABLES Final Resul t Performing Organization Address [facility] [place] [address] from Last 3 Months or Most Recently Relevant to Health Maintenance Insurance [address] [place] [address] [facility] , [address] [place] [address] Care Teams Reed Press Feeder Relationship Specialty Start Date End Date PcpElaine Unassigned PCP - General Family Medicine 06/08/25
--- OUTSIDE RECORDS SUMMARY | 2025-06-19 11:19 | XMS_ITS | Encounter Summary ---
Author Organization [facility] Address [address] [place] [address] Care Team Providers Care Medical Laboratory Technician Name Role Phone Torrey Goldman DO Primary Care Provider Unavaila [facility], Pcp Primary Care Provider Unavailabl e Reason for Visit * Reason Comments E-prescribe Rx Request Encounter Details Date Type Department Care Team Description 11/27/2022 Refill Medicine/Pediatrics - [address] [address] Torrey Goldman DO E-prescribe Rx Request Social History Tobacco Use Types Packs/Day Years [...] encounter Miscellaneous Notes * Telephone Encounter - Eloisa Coelho L.P.N. - 11/30/2022 8:07 AM EDT Can wait for appointment 12/06/22 Can buy OTC until seen * Telephone Encounter - Marianne Duffy - 11/28/2022 9:04 AM EDT Refill on med list Last office visit : 09/02/20 Last time with PCP: n Next office visit : 12/06/2022 documented in this encounter Plan of Treatment Not on file documented as of this encounter Visit Diagnoses Not on filedocumented in this encounter Care Teams Medical Laboratory Technician Relationship Specialty Start Date End Date Torrey Goldman DO PCP - General Internal Medicine 03/02/22 11/30/22 [facility], Pcp PCP - General Internal Medicine 12/01/22 documented as of this encounter
--- OUTSIDE RECORDS SUMMARY | 2025-06-19 11:19 | XMS_ITS | Clinical Summary ---
Author Organization [facility] Address [address] [place] [address] Care Team Providers Care Line Crew Supervisor Name Role Phone Community, Pcp Primary Care Provider Unavailabl e Allergies Active Allergy Reactions Severity Noted Date Comments Augmentin 09/20/2017 Rash Cefotetan High 09/25/2014 Hives, Apap-Fd&C Blue #1-Oxycodone 06/06/20 18 Medications Medication Sig Dispensed Refills Start Date End Date Status acetaminophen (TYLENOL) 500 MG tablet Take 500 mg by mouth as needed. 0 Active ibuprofen (ADVIL,MOTRIN) 800 MG tablet Take 1 tablet by mouth every 8 hours as needed for Pain. 60 tablet 0 05/27/2021 Active fluticasone 50 MCG/ACT nasal spray One spray in each nostril at bedtime 16 mL 3 05/27/2021 Active docusate sodium (COLACE) 50 MG capsule Take 1 capsule by mouth 2 times daily as needed for Constipation. 60 capsule 1 08/31/2021 Active bisacodyl (DULCOLAX) 5 MG EC tablet Take 4 tablets by mouth right before your first dose of liquid prep. 4 tablet 0 09/19/2021 Active polyethylene glycol (GoLYTELY,NuLYTELY ) 236 g suspension Take 240 mL by mouth once for 1 dose. May substitue for any PEG. Follow instructions given by office. 4000 mL 0 09/19/2021 Active lisinopril (PRINIVIL,ZESTRIL) 10 MG tablet TAKE 1 TABLET BY MOUTH EVERY DAY 30 Tablet 0 05/31/2022 Active omeprazole (PRILOSEC) 20 MG capsule TAKE 1 CAPSULE BY MOUTH EVERY DAY 90 Capsule 0 09/06/2022 Active loratadine (CLARITIN) 10 MG tablet TAKE 1 TABLET BY MOUTH EVERY DAY 90 Tablet 0 09/04/2022 Active Active Problems Problem Noted Date Erythrocytosis 05/24/2021 Overview: Per heme/onc 05/02/2021, not clinically significant no further work-up needed Hemochromatosis 05/24/2021 Overview: Being investigated by heme\onc 04/2021 Gastroesophageal reflux disease 02/01/20 20 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 Family history of early CAD 09/27/2015 Overview: Father first Mi age 30, hx rheumatic fever HTN (hypertension) 09/25/2014 Resolved Problems Problem Noted Date Resolved Date Morbid obesity with BMI of 40.0-44.9, adult 03/1305/24/2021 Non compliance w medication regimen 05/11/2015 09/27/2015 Obesity (BMI 30-39.9) 09/25/2014 03/27/2016 Immunizations Name Administration Dates Next Due COVID-19 (Moderna) 12/15/2020,11/17/2020 Hepatitis B > 19yrs 02/15/2021,01/13/2021 Influenza (> 6 Months) 05/10/2015 Influenza Flu (PT Reported) 07/13/2020 Influenza Vaccine-preservati ve Free-quadrivalent 4 Years 05/27/2021,06/06/2018 MMR (Efbhrev-Qdoql-Iolurgd) 02/15/2021, Tdap 09/27/2015 Family History Medical History Relation Name Comments CAD Father HIV Sister Relation Name Status Comments Brother Alive HTN Father (Age 73) first MD a ge 30, rheumatic fever, Heart failure, [...] Sign Reading Time Taken Comments Blood Pressure 128/82 08/31/2021 11:21 AM EST Pulse 74 08/31/2021 11:21 AM EST Temperature 37.2 C (99 F) 08/31/2021 11:21 AM EST Respiratory Rate 16 08/31/2021 11:21 AM EST Oxygen Saturation 97% 06/13/2021 1:02 PM EDT RA Inhaled Oxygen Concentration - - Weight 95.3 kg (210 lb) 08/31/2021 11:21 AM EST Height 160 cm (5' 3 ) 08/31/2021 11:21 AM EST Body Mass Index 37.2 08/31/2021 11:21 AM EST Plan of Treatment Health Maintenance Due Date Last Done Comments HEPATITIS C SCREENING 1989 CERVICAL CANCER SCREENING 10/23/20202017 (External Completion of test per patient (Patient reports normal results)), 07/13/2014 (External Completion) SHINGLES VACCINE (1 of 2) 2021 MAMMOGRAM 11/10/2021 11/10/2020, 03/14, 12/27/2016, Additional history exists BASELINE HEALTH EXAM 40-64 05/31/202305/31, 05/27/2021, 01/29/2018, Additional history exists BMI CHECK/ADVISE 08/13/2024 06/13/2021, , 09/06/2020, Additional history exists Covid-19 Vaccine (2022-2 4 season) 2025 12/15/2020, 11/17/2020 INFLUENZA (#1) 2025 05/27/2021, 12/0 08/2019, 06/06/2018, Additional history exists DTAP/TDAP/TD (2 - Td or Tdap) 09/27/2025 (Completed), 09/27/2015 CHOLESTEROL SCREENING 05/31/2026 05/31/2021 , 03/29/2020, 01/29/2018, Additional history exists COLON CANCER SCREENING 09/30/2031 09/30/2021 PNEUMOCOCCAL VACCINE FOR HIG H RISK PATIENTS (#1) 01/31/2036 Care Teams Line Crew Supervisor Relationship Specialty Start Date End Date Community, Pcp PCP - General Internal Medicine 12/01/22
--- OUTSIDE RECORDS SUMMARY | 2025-06-19 11:19 | XMS_ITS | Encounter Summary ---
Author Organization [facility] Address [address] [place] [address] Care Team Providers Care Tailor Men'S Ready To Wear Name Role Phone Bernadette Menezes MD Primary Care Provider Un available Community, Pcp Primary Care Provider Unavailabl e Torrey Goldman DO Primary Care Provider Unavaila ble AhTorrey haynes DO Primary Care Provider Unavaila ble Community, Pcp Primary Care Provider Unavailabl e Encounter Details Date Type Department Care Team Description 03/03/2020 T[employer] Report Medical Records [address] [place] [address] Jerrod Youssef MD Social History Tobacco Use Types Packs/Day [...] on filedocumented in this encounter Care Teams Tailor Men'S Ready To Wear Relationship Specialty Start Date End Date Bernadette [...]
--- OUTSIDE RECORDS SUMMARY | 2025-06-19 11:19 | XMS_ITS | Encounter Summary ---
Author Organization [employer] Address [address] [facility] 7t [place] [address] Care Team Providers Care Quality Control Representative Name Role Phone Bethanie Matt NP Primary Care Provider Bev Desir DO Primary Care Provider [phone] PcpElaine Unassigned Primary Care Provider U navailable Reason for Visit * Reason Comments Med Refill Encounter Details Date Type Department Care Team (Late st Contact Info) Description 08/17/2023 Refill Elaine [facility] [address] [place] [address] Bethanie Matt NP Essential hypertension Social History Tobacco Use Types Packs/Day Years Used Date Smoking Tobacco: Never Smokeless Tobacco: Never Alcohol Use Standard Drinks/Week Comments Not Currently 0 (1 standard drink = 0.6 oz pur e alcohol) Maybe 2 drinks per year. Housing Stability Answer Date Recorded What is your housing situation today? 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
--- OUTSIDE RECORDS SUMMARY | 2025-06-19 11:19 | XMS_ITS | Encounter Summary ---
Author Organization [facility] Address [address] [place] [address] Care Team Providers Care Cash Reconciliation Specialist Name Role Phone Bernadette Menezes MD Primary Care Provider Un available Community, Pcp Primary Care Provider Unavailabl e Torrey Goldman DO Primary Care Provider Unavaila ble AhTorrey haynes DO Primary Care Provider Unavaila ble Community, Pcp Primary Care Provider Unavailabl e Encounter Details Date Type Department Care Team Description 03/09/2021 Refill Medicine/Pediatrics [address] [address] Cain Slater PA-C Social History Tobacco Use Types Packs/Day Years [...] on filedocumented in this encounter Care Teams Cash Reconciliation Specialist Relationship Specialty Start Date End Date Bernadette [...]
--- OUTSIDE RECORDS SUMMARY | 2025-06-19 11:19 | XMS_ITS | Encounter Summary ---
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 Question Answer Date of Assessment Author Little interest or pleasure in doing things Several days 04/25/2023 9:43 AM EDT Elsa Valero RMA Feeling down, depressed, or hopeless Several days 04/25/2023 9:43 AM EDT Elsa Valero RMA Patient Health Questionnaire -2 Score 2 04/25/2023 9:43 AM EDT Elsa Valero RMA * If you checked off any problems on this questionnaire so far, Question Answer Date of Assessment Author How difficult have these problems made it for you to do your work, take care of things at home, or get along with other people? Not difficult at all 04/25/2023 9:43 AM EDT Elsa Valero RM A documented as of this encounter Plan of Treatment Not on file documented as of this encounter Visit Diagnoses Diagnosis Essential hypertension Unspecified essential hypertension documented in this encounter Care Teams Small Parts Assembler Relationship Specialty Start Date End Date Bethanie Matt NP PCP - General Family Medicine 09/19/22 05/31/25 Bev Emerson DO [address] [place] [address] PCP - General Software Support Specialist 06/01/25 06/07/25 Elaine Ronquillo Unassigned PCP - General Family Medicine 06/08/25 documented as of this encounter
--- OUTSIDE RECORDS SUMMARY | 2025-06-19 11:19 | XMS_ITS | Clinical Summary ---
Author Organization [facility] Address [address] [place] [address] Care Team Providers Care Manager Ems Name Role Phone Torrey Goldman DO Primary Care Provider [phone] Surgical History Surgery Date Site/Laterality Comments SECTION PROCEDURE: HISTORICAL OTHER SURGICAL HISTORY PROCEDURE: HISTORICAL CERCLAGE SURGERY CHOLECYSTECTOMY PROCEDURE: [place] CHOLECYSTECTOMY OTHER SURGICAL HISTORY PROCEDURE: [place] HYSTEROSCOPY ENDOMETRIAL ABLATION; COMMENT: bladder sling TUBAL [...] Brother Alive HTN Father (Age 73) first PA a ge 31, rheumatic fever, Heart failure, [...] age to complete this topic Care Teams Manager Ems Relationship Specialty Start Date End Date Torrey Goldman DO PCP - General Internal Medicine 03/02/22
--- OUTSIDE RECORDS SUMMARY | 2025-06-19 11:19 | XMS_ITS | Encounter Summary ---
Author Organization [facility] Address [address] [place] [address] Care Team Providers Care Train Director Name Role Phone Bernadette Menezes MD Primary Care Provider Un available Community, Pcp Primary Care Provider Unavailabl e Torrey Goldman DO Primary Care Provider Unavaila ble AhTorrey haynes DO Primary Care Provider Unavaila ble Community, Pcp Primary Care Provider Unavailabl e Encounter Details Date Type Department Care Team Description 10/25/2016 Hospital Medical Records [address] [place] [address] Trina Cuevas MD [address] [place] [address] [address] [place] [address] Social History Tobacco Use Types Packs/Day Years [...] on filedocumented in this encounter Care Teams Train Director Relationship Specialty Start Date End Date Bernadette [...]
--- OUTSIDE RECORDS SUMMARY | 2025-06-19 11:19 | XMS_ITS | Encounter Summary ---
Author Organization [facility] Address [address] [place] [address] Care Team Providers Care Business Development Intern Name Role Phone Bernadette Menezes MD Primary Care Provider Un available Community, Pcp Primary Care Provider Unavailabl e Torrey Goldman DO Primary Care Provider Unavaila ble Torrey Goldman DO Primary Care Provider Unavaila ble Community, Pcp Primary Care Provider Unavailabl e Encounter Details Date Type Department Care Team Description 03/10/2020 Group Contract Analyst Report Medical Records [address] [place] [address] Erik Russo Social History Tobacco Use Types Packs/Day Years [...] on filedocumented in this encounter Care Teams Business Development Intern Relationship Specialty Start Date End Date Bernadette [...]
--- OUTSIDE RECORDS SUMMARY | 2025-06-19 11:19 | XMS_ITS | Patient Health Record ---
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) Plantar fasciitis, right (M72.2) Active confirmed Vital Signs Heart Rate 80 /min 02/25/2025 Temperature 96.8 degrees Fahrenheit 02/25/2025 Respiratory Rate 12 /min 02/25/2025 Height 5ft 3in in 02/25/2025 Weight 192.5 lbs 02/25/2025 BMI 34.1 kg/m2 02/25/2025 Encounters Encounter Location Date Provider Diagnosis [facility] [address] [address] 12/26/2024 CHRISTINE OKEEFE Right Achilles tendinitis M76.61 ; Plantar fasciitis, right M72.2 ; Pain in right foot M79.671 and Os trigonum Q74.2 [facility] [address] [address] 01/23/2025 CHRISTINE OKEEFE Right Achilles tendinitis M76.61 ; Plantar fasciitis, right M72.2 ; Pain in right foot M79.671 and Os trigonum Q74.2 [facility] [address] [address] 02/25/2025 CHRISTINE OKEEFE Right Achilles tendinitis M76.61 ; Plantar fasciitis, right M72.2 ; Pain in right foot M79.671 and Os trigonum Q74.2 [facility] [address] [address] 12/09/2024 CHRISTINE OKEEFE Assessments Encounter Date Diagnosis [...] pain to return to wearing the brace multimedia services manager every other day. If no issues when [...] Insured Coverage Start Date Coverage End Date [facility] [address] [place] [address] [id number] Lisa Curtis Self - patient is the [...]
--- OUTSIDE RECORDS SUMMARY | 2025-06-19 11:19 | XMS_ITS | Encounter Summary ---
Author Organization [facility] Address [address] [place] [address] Care Team Providers Care Dot Compliance Coordinator Name Role Phone Bernadette Menezes MD Primary Care Provider Un available Community, Pcp Primary Care Provider Unavailabl e Torrey Goldman DO Primary Care Provider Unavaila ble Torrey Goldman DO Primary Care Provider Unavaila ble Community, Pcp Primary Care Provider Unavailabl e Encounter Details Date Type Department Care Team Description 05/02/2021 Environmental Compliance Inspector Report Medical Records [address] [place] [address] Erik Russo Social History Tobacco Use Types [...] on filedocumented in this encounter Care Teams Dot Compliance Coordinator Relationship Specialty Start Date End Date Bernadette [...]
--- OUTSIDE RECORDS SUMMARY | 2025-06-19 11:19 | XMS_ITS | Encounter Summary ---
Author Organization [facility] Address [address] [place] [address] Care Team Providers Care Sliver Lap Machine Tender Name Role Phone Bernadette Menezes MD Primary Care Provider Un available Community, Pcp Primary Care Provider Unavailabl e Torrey Goldman DO Primary Care Provider Unavaila ble Torrey Goldman DO Primary Care Provider Unavaila ble Community, Pcp Primary Care Provider Unavailabl e Encounter Details Date Type Department Care Team Description 04/08/2018 Field Pipe Lines Supervisor Report Medical Records [address] [place] [address] Jerrod Youssef MD Social History Tobacco Use [...] on filedocumented in this encounter Care Teams Sliver Lap Machine Tender Relationship Specialty Start Date End Date Bernadette [...]
--- OUTSIDE RECORDS SUMMARY | 2025-06-19 11:19 | XMS_ITS | Encounter Summary ---
Author Organization [facility] Address [address] [place] [address] Care Team Providers Care Revenue Stamper Name Role Phone Torrey Goldman DO Primary Care Provider Unavaila Torrey Keith DO Primary Care Provider Unavaila amita [facility] Pcp Primary Care Provider Unavailabl e Reason for Visit * Reason Comments E-prescribe Rx Request Encounter Details Date Type Department Care Team Description 02/25/2022 Refill Medicine/Pediatrics - [address] [address] Bernadette Menezes MD E-prescribe Rx Request Social History Tobacco Use [...] encounter Miscellaneous Notes * Telephone Encounter - Saritha Slaughter M.A. - 03/01/2022 8:35 AM EDT Last office visit 08/31/21 * Telephone Encounter - Enma Wright M.A. - 02/28/2022 6:04 PM EDT Afshan - 08/31/21 by Wilfredo documented in this encounter Plan of Treatment Not on file documented as of this encounter Visit Diagnoses Not on filedocumented in this encounter Care Teams Revenue Stamper Relationship Specialty Start Date End Date Torrey Goldman DO PCP - General Internal Medicine 12/13/21 03/01/22 Torrey Goldman DO PCP - General Internal Medicine 03/02/22 11/30/22 [facility], Pcp PCP - General Internal Medicine 12/01/22 documented as of this encounter
== END 2025-06-19 09:51 | disposition home or self-care (01) ==
LOC: HO.BBR 09:50
PROVIDERS: PCP Family Medicine; Visit Provider Nurse Practitioner Adult Health
DX: Z13.89 Encounter for screening for other disorder (principal)